=== PATIENT | female | born 1960 | race Caucasian/White ===

== ENCOUNTER 2016-09-15 17:32 | Emergency (ER) | payer OTHER ==
[2016-09-15 18:27] VITALS: BP 172/79; PULSE 80; RESP 16; TEMP 98.9; O2SAT 100
[2016-09-15 21:23] LABS: AUTOMATED NEUTROPHIL # 4.6 TH/MM3 (1.8-7.7); BASOPHIL % 0.4 % (0.0-2.0); EOSINOPHIL # 0.3 TH/MM3 (0-0.4); EOSINOPHIL % 3.9 % (0.0-4.0); HEMATOCRIT 39.3 % (35.0-46.0); HEMO FLAGS DIFF FINAL; LYMPH % 19.8 % (9.0-44.0); LYMPHOCYTE # 1.4 TH/MM3 (1.0-4.8); MEAN CELL VOLUME 91.1 FL (80.0-100.0); MEAN CORPUSCULAR HEMOGLOBIN 30.7 PG (27.0-34.0); MEAN CORPUSCULAR HGB CONC 33.6 % (32.0-36.0); MONO % 10.1 % (0.0-8.0); NEUT % 65.8 % (16.0-70.0); PLATELET COUNT 274 TH/MM3 (150-450); RED BLOOD COUNT 4.32 MIL/MM3 (4.00-5.30); RED CELL DISTRIBUTION WIDTH 14.3 % (11.6-17.2)
[2016-09-15 21:44] LABS: ANION GAP 6 MEQ/L (5-15)
[2016-09-15 21:55] LABS: ALKALINE PHOSPHATASE 90 U/L (45-117); ALT (GPT) 46 U/L (10-53); AST (GOT) 51 U/L (15-37); BICARBONATE 31.1 MEQ/L (21.0-32.0); BLOOD UREA NITROGEN 7 MG/DL (7-18); CHLORIDE 98 MEQ/L (98-107); GLOMERULAR FILTRATION RATE 58 ML/MIN (>89); POTASSIUM 3.4 MEQ/L (3.5-5.1); SODIUM (NA) 135 MEQ/L (136-145); TOTAL BILIRUBIN ADULT 0.7 MG/DL (0.2-1.0)
[2016-09-15] MEDS ORDERED: CYCL1TAB29 PO (22:10)
[2016-09-15] MEDS ORDERED: QUET1TAB10 PO (22:10)
[2016-09-15] MEDS ORDERED: PRAZ1CAP PO (22:10)
[2016-09-15] MEDS ORDERED: REME15TA PO (22:10)
[2016-09-15] MEDS ORDERED: CITA40TA4 PO (22:10)
[2016-09-15 22:12] LABS: ACETAMINOPHEN LESS THAN 2.0 MCG/ML (10.0-30.0)
[2016-09-15] MEDS ORDERED: POTASSIUM CHLORIDE 20 MEQ CONTROLLED RELEASE TAB PO ONE (22:15)
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
[2016-09-15 22:22] VITALS: BP 132/86; PULSE 97; RESP 18; O2SAT 96
[2016-09-15 22:30] LABS: AMPHETAMINE, URINE NEG (NEG); BARBITURATES, URINE NEG (NEG); COCAINE, URINE POS (NEG)
[2016-09-16 03:00] VITALS: BP 128/78; PULSE 77; RESP 18; TEMP 97.5; O2SAT 93
== END 2016-09-16 05:27 ==
LOC: NEPJ 17:32
DX: F32.9 Major depressive disorder, single episode, unspecified (principal); J44.9 Chronic obstructive pulmonary disease, unspecified; F19.10 Other psychoactive substance abuse, uncomplicated; Z72.0 Tobacco use
CPT/HCPCS: 80053; 80307; 80320; 80329; 85025; 99283; G0480

== ENCOUNTER 2016-12-30 09:41 | Emergency (ER) | payer SELFPAY ==
[~2016-12-30] VITALS: Ht 162.6 cm; Wt 48.0 kg
[~2016-12-30 09:41] MED LIST: CITA40TA4 PO; CYCL1TAB29 PO; PRAZ1CAP PO; QUET1TAB10 PO; REME15TA PO
[2016-12-30 09:46] VITALS: BP 152/75; PULSE 69; TEMP 97.8; O2SAT 97
[2016-12-30 10:00] VITALS: O2SAT 98
[2016-12-30] MEDS ORDERED: SODIUM CHLORIDE 0.9% FLUSH 10 ML FLUSH IVF PRN (10:15)
[2016-12-30 10:37] LABS: AUTOMATED NEUTROPHIL # 3.3 TH/MM3 (1.8-7.7); BASOPHIL % 0.5 % (0.0-2.0); EOSINOPHIL # 0.2 TH/MM3 (0-0.4); EOSINOPHIL % 2.3 % (0.0-4.0); HEMATOCRIT 45.1 % (35.0-46.0); HEMO FLAGS DIFF FINAL; LYMPH % 38.3 % (9.0-44.0); LYMPHOCYTE # 2.7 TH/MM3 (1.0-4.8); MEAN CELL VOLUME 87.9 FL (80.0-100.0); MEAN CORPUSCULAR HEMOGLOBIN 29.6 PG (27.0-34.0); MEAN CORPUSCULAR HGB CONC 33.6 % (32.0-36.0); MONO % 11.4 % (0.0-8.0); NEUT % 47.5 % (16.0-70.0); PLATELET COUNT 202 TH/MM3 (150-450); RED BLOOD COUNT 5.13 MIL/MM3 (4.00-5.30); RED CELL DISTRIBUTION WIDTH 15.1 % (11.6-17.2)
[2016-12-30 10:53] LABS: ANION GAP 7 MEQ/L (5-15); AST (GOT) 61 U/L (15-37); BICARBONATE 27.1 MEQ/L (21.0-32.0); BLOOD UREA NITROGEN 16 MG/DL (7-18); CHLORIDE 103 MEQ/L (98-107); GLOMERULAR FILTRATION RATE 49 ML/MIN (>89); MAGNESIUM 1.9 MG/DL (1.5-2.5); POTASSIUM 3.8 MEQ/L (3.5-5.1); SODIUM (NA) 137 MEQ/L (136-145)
[2016-12-30 10:59] LABS: ALKALINE PHOSPHATASE 89 U/L (45-117); ALT (GPT) 69 U/L (10-53); TOTAL BILIRUBIN ADULT 1.2 MG/DL (0.2-1.0)
--- NOTE | 2016-12-30 11:03 | RADRPT ---
EXAM DATE/TIME: 12/30/2016 10:27 [facility] COMPARISON: No previous studies available for comparison. INDICATIONS : Chest pain. MEDICAL HISTORY : Chronic obstructive pulmonary disease. SURGICAL HISTORY : None. ENCOUNTER: Initial ACUITY: 1 day PAIN SCORE: 8/10 LOCATION: Right chest FINDINGS: The lungs are hyperaerated. There is an oblong opacity or mass in the left apex which measures 8 mm in length and 4.2 cm in length. This extends from the suprahilar region to the lateral apical pleura . No focal areas of consolidation. Nodular opacities in the upper lateral lungs bilaterally correla te to the location of the nipples. The heart is normal in size. Both hemidiaphragms well delineated . In clips in right upper quadrant of the abdomen. Osseous structures are grossly intact. CONCLUSION: 1. Hyperaerated lungs. 2. Focal opacity at the left upper lung is indeterminate in appearance. This could represent an exub erant area of scarring. An elongated mass cannot be excluded. If there are no outside chest x-rays to evaluate if this is a new or chronic finding, may consider performing outpatient PET/CT scan for f urther characterization and to make decisions regarding possible biopsy. Campbell Jimenez MD on December 30, 2016 at 10:59 Board Certified Radiologist. This report was verified electronically.
[2016-12-30] MEDS ORDERED: ALBUTEROL SULFATE 90 MCG/ACT HFA 8 GM INHALER INH ONE (11:15)
[2016-12-30] MEDS ORDERED: DEXAMETHASONE SOD PHOS 20 MG/5 ML VIAL IM ONE (11:15)
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
[2016-12-30] MEDS ORDERED: ALBUTEROL SULFATE 90 MCG/ACT HFA 18 GM INHALER INH ONE (11:45)
--- NOTE | 2016-12-30 14:35 | EKG ---
Date Performed: 12/30/2016 Time Performed: 10:00:46 PTAGE: 56 years EKG: Sinus rhythm RIGHT ATRIAL ENLARGEMENT NONSPECIFIC T-WAVE ABNORMALITY ABNORMAL ECG NO PREVIOUS TRACING DOCTOR: Servando Weinstein Interpretating Date/Time 12/30/2016 14:33:50
== END 2016-12-30 12:22 | disposition home or self-care (01) ==
LOC: NEPE 09:41
DX: J44.9 Chronic obstructive pulmonary disease, unspecified (principal); F17.200 Nicotine dependence, unspecified, uncomplicated; R94.31 Abnormal electrocardiogram [ECG] [EKG]
CPT/HCPCS: 71020; 80053; 83735; 84484; 85025; 93005; 96372; 99284; J1100

== ENCOUNTER 2018-03-06 16:04 | Emergency (ER) | payer SELFPAY ==
[~2018-03-06 16:04] MED LIST changes: +CYCL10TA PO; -CYCL1TAB29 PO
[2018-03-06 16:11] VITALS: BP 92/60; PULSE 97; RESP 18; TEMP 99.7; O2SAT 92
[2018-03-06] MEDS ORDERED: VENTAER INH (16:26)
[2018-03-06] MEDS ORDERED: HYDR50TA94 PO (16:26)
[2018-03-06] MEDS ORDERED: ONDANSETRON ODT 4 MG TAB PO ONE (16:30)
[2018-03-06 17:14] LABS: AUTOMATED NEUTROPHIL # 3.1 TH/MM3 (1.8-7.7); BASOPHIL % 0.3 % (0.0-2.0); EOSINOPHIL # 0.2 TH/MM3 (0-0.4); EOSINOPHIL % 3.4 % (0.0-4.0); HEMATOCRIT 39.6 % (35.0-46.0); HEMOGLOBIN 13.5 GM/DL (11.6-15.3); LYMPH % 24.7 % (9.0-44.0); LYMPHOCYTE # 1.2 TH/MM3 (1.0-4.8); MEAN CELL VOLUME 94.8 FL (80.0-100.0); MEAN CORPUSCULAR HEMOGLOBIN 32.4 PG (27.0-34.0); MEAN CORPUSCULAR HGB CONC 34.2 % (32.0-36.0); MEAN PLATELET VOLUME 8.6 FL (7.0-11.0); MONO % 10.4 % (0.0-8.0); MONOCYTE # 0.5 TH/MM3 (0-0.9); NEUT % 61.2 % (16.0-70.0); PLATELET COUNT 139 TH/MM3 (150-450); RED BLOOD COUNT 4.18 MIL/MM3 (4.00-5.30); RED CELL DISTRIBUTION WIDTH 13.8 % (11.6-17.2)
[2018-03-06 17:36] LABS: ALT (GPT) 173 U/L (10-53); AST (GOT) 153 U/L (15-37); BLOOD UREA NITROGEN 14 MG/DL (7-18); CALCIUM 8.6 MG/DL (8.5-10.1); CHLORIDE 105 MEQ/L (98-107); CREATININE 1.04 MG/DL (0.50-1.00); GLOMERULAR FILTRATION RATE 54 ML/MIN (>89); GLUCOSE,RANDOM 149 MG/DL (74-106); SODIUM (NA) 137 MEQ/L (136-145)
[2018-03-06 17:45] LABS: ALKALINE PHOSPHATASE 106 U/L (45-117); TOTAL BILIRUBIN ADULT 0.8 MG/DL (0.2-1.0); TOTAL PROTEIN 7.2 GM/DL (6.4-8.2)
[2018-03-06 18:15] VITALS: BP 127/62; PULSE 74; RESP 18; O2SAT 96
[2018-03-06 22:12] VITALS: BP 100/53; PULSE 71; RESP 17; O2SAT 96
--- NOTE | 2018-03-06 22:48 | PD ---
HPI Chief Complaint: Psychiatric Symptoms Time Seen by Provider: 22:22 Travel History International Travel<30 days: No Contact w/Intl Traveler<30days: No Traveled to known affect area: No History of Present Illness HPI 57-year-old white female presents emergency department by EMS on a voluntary basis for psychological evaluation. Patient had called EMS due to nausea and vomiting. She states that she had vomited approximately 6 times at home. She was feeling confused and disorientated. She states that she had smoked some marijuana or some drug earlier and now has developed nausea vomiting and confusion. The patient also had made statements at the scene that she was feeling sad and depressed and she had contemplated suicide. She had stated that she would walk out to traffic. She has been off her psych medicines for the last several weeks. She had run out and she has not had them refilled again. Patient denies any toxic ingestions. She states that she has had a history of substance abuse in the past and has not smoked crack cocaine in several years. She does not drink alcohol. She denies any fever chills. No chest pain or shortness of breath. No abdominal pain. No dysuria frequency. Symptoms are moderate. Worsened by smoking marijuana or some illegal substances. No alleviating factor. PFSH Past Medical History Narrative Medical Anxiety, depression, DJD, COPD Bipolar Disorder: Yes Anxiety: Yes (PTSD) Depression: Yes COPD: Yes Diminished Hearing: No Musculoskeletal: Yes (DJD) Respiratory: Yes (COPD ) Tetanus Vaccination: < 5 Years Past Surgical History Narrative Surgical Cholecystectomy Cholecystectomy: Yes Eye Surgery: Yes Other Surgery: Yes (carpel tunnel) Social History Alcohol Use: No Tobacco Use: Yes (PACK A DAY ) Substance Use: Yes (marijuana) Allergies-Medications (Allergen,Severity, Reaction): Coded Allergies: No Known Allergies (Unverified Adverse Reaction, Unknown, 03/06/18) Reported Meds & Prescriptions Reported Meds & Active Scripts Active Reported Ventolin Hfa 18 GM Inh (Albuterol Sulfate) 90 Mcg/Act Aer 2 Puff INH Q4-6H PRN Hydroxyzine HCl 50 Mg Tab 50 Mg PO TID Quetiapine (Quetiapine Fumarate) 300 Mg Tab 300 Mg PO HS Prazosin (Prazosin HCl) 1 Mg Cap 1 Mg PO HS Remeron (Mirtazapine) 15 Mg Tab 15 Mg PO HS Flexeril (Cyclobenzaprine HCl) 10 Mg Tab 10 Mg PO TID PRN Citalopram (Citalopram Hydrobromide) 40 Mg Tab 40 Mg PO DAILY Review of Systems General / Constitutional: No: Fever Eyes: No: Visual changes HENT: No: Headaches Cardiovascular: No: Chest Pain or Discomfort Respiratory: No: Shortness of Breath Gastrointestinal: Positive: Nausea, Vomiting, No: Abdominal Pain Genitourinary: No: Dysuria Musculoskeletal: No: Pain Skin: No Rash Neurologic: No: Weakness Psychiatric: Positive: Depression, Suicidal Ideations, Mood Disorder, Substance Abuse, No: Anxiety, Disorder of Thought, Homicidal Ideation Endocrine: No: Polydipsia Hematologic/Lymphatic: No: Easy Bruising Physical Exam Narrative GENERAL: Well-nourished, well-developed patient. SKIN: Warm and dry. HEAD: Normocephalic and atraumatic. EYES: No scleral icterus. No injection or drainage. ENT: No nasal drainage noted. Mucous membranes pink. Airway patent. NECK: Supple, trachea midline. Moves head freely without obvious discomfort. CARDIOVASCULAR: Regular rate and rhythm without murmurs, gallops, or rubs. RESPIRATORY: Breath sounds equal bilaterally. No accessory muscle use. GASTROINTESTINAL: Abdomen soft, non-tender, nondistended. EXTREMITIES: No cyanosis or edema. BACK: Nontender without obvious deformity. No CVA tenderness. NEURO: Patient is alert and oriented. no sensorimotor deficits. Nonfocal. Normal speech. PSYCH: No delusions. No auditory or visual hallucinations. Data Data Last Documented VS Vital Signs Date Time Temp Pulse Resp B/P (MAP) Pulse Ox O2 Delivery O2 Flow Rate FiO2 03/06/18 22:12 71 17 100/53 (69) 96 Room Air 03/06/18 16:11 99.7 Orders Orders Complete Blood Count With Diff (03/06/18 16:24) Comprehensive Metabolic Panel (03/06/18 16:24) Thyroid Stimulating Hormone (03/06/18 16:24) Ed Urine Pregnancytest Poc (03/06/18 16:24) Psych Screen (03/06/18 16:24) Drug Screen, Random Urine (03/06/18 16:24) Alcohol (Ethanol) (03/06/18 16:24) Ondansetron Odt (Zofran Odt) (03/06/18 16:30) Labs Laboratory Tests Test 03/06/18 16:42 03/06/18 17:45 White Blood Count 5.0 TH/MM3 Red Blood Count 4.18 MIL/MM3 Hemoglobin 13.5 GM/DL Hematocrit 39.6 % Mean Corpuscular Volume 94.8 FL Mean Corpuscular Hemoglobin 32.4 PG Mean Corpuscular Hemoglobin Concent 34.2 % Red Cell Distribution Width 13.8 % Platelet Count 139 TH/MM3 Mean Platelet Volume 8.6 FL Neutrophils (%) (Auto) 61.2 % Lymphocytes (%) (Auto) 24.7 % Monocytes (%) (Auto) 10.4 % Eosinophils (%) (Auto) 3.4 % Basophils (%) (Auto) 0.3 % Neutrophils # (Auto) 3.1 TH/MM3 Lymphocytes # (Auto) 1.2 TH/MM3 Monocytes # (Auto) 0.5 TH/MM3 Eosinophils # (Auto) 0.2 TH/MM3 Basophils # (Auto) 0.0 TH/MM3 CBC Comment DIFF FINAL Differential Comment Blood Urea Nitrogen 14 MG/DL Creatinine 1.04 MG/DL Random Glucose 149 MG/DL Total Protein 7.2 GM/DL Albumin 3.0 GM/DL Calcium Level 8.6 MG/DL Alkaline Phosphatase 106 U/L Aspartate Amino Transf (AST/SGOT) 153 U/L Alanine Aminotransferase (ALT/SGPT) 173 U/L Total Bilirubin 0.8 MG/DL Sodium Level 137 MEQ/L Potassium Level 3.6 MEQ/L Chloride Level 105 MEQ/L Carbon Dioxide Level 23.0 MEQ/L Anion Gap 9 MEQ/L Estimat Glomerular Filtration Rate 54 ML/MIN Thyroid Stimulating Hormone 3rd Gen 1.470 uIU/ML Ethyl Alcohol Level LESS THAN 3 MG/DL Urine Opiates Screen NEG Urine Barbiturates Screen NEG Urine Amphetamines Screen NEG Urine Benzodiazepines Screen NEG Urine Cocaine Screen NEG Urine Cannabinoids Screen NEG MDM Medical Decision Making Medical Screen Exam Complete: Yes Emergency Medical Condition: Yes Medical Record Reviewed: Yes Interpretation(s) Laboratory Tests Test 03/06/18 16:42 03/06/18 17:45 White Blood Count 5.0 TH/MM3 Red Blood Count 4.18 MIL/MM3 Hemoglobin 13.5 GM/DL Hematocrit 39.6 % Mean Corpuscular Volume 94.8 FL Mean Corpuscular Hemoglobin 32.4 PG Mean Corpuscular Hemoglobin Concent 34.2 % Red Cell Distribution Width 13.8 % Platelet Count 139 TH/MM3 Mean Platelet Volume 8.6 FL Neutrophils (%) (Auto) 61.2 % Lymphocytes (%) (Auto) 24.7 % Monocytes (%) (Auto) 10.4 % Eosinophils (%) (Auto) 3.4 % Basophils (%) (Auto) 0.3 % Neutrophils # (Auto) 3.1 TH/MM3 Lymphocytes # (Auto) 1.2 TH/MM3 Monocytes # (Auto) 0.5 TH/MM3 Eosinophils # (Auto) 0.2 TH/MM3 Basophils # (Auto) 0.0 TH/MM3 CBC Comment DIFF FINAL Differential Comment Blood Urea Nitrogen 14 MG/DL Creatinine 1.04 MG/DL Random Glucose 149 MG/DL Total Protein 7.2 GM/DL Albumin 3.0 GM/DL Calcium Level 8.6 MG/DL Alkaline Phosphatase 106 U/L Aspartate Amino Transf (AST/SGOT) 153 U/L Alanine Aminotransferase (ALT/SGPT) 173 U/L Total Bilirubin 0.8 MG/DL Sodium Level 137 MEQ/L Potassium Level 3.6 MEQ/L Chloride Level 105 MEQ/L Carbon Dioxide Level 23.0 MEQ/L Anion Gap 9 MEQ/L Estimat Glomerular Filtration Rate 54 ML/MIN Thyroid Stimulating Hormone 3rd Gen 1.470 uIU/ML Ethyl Alcohol Level LESS THAN 3 MG/DL Urine Opiates Screen NEG Urine Barbiturates Screen NEG Urine Amphetamines Screen NEG Urine Benzodiazepines Screen NEG Urine Cocaine Screen NEG Urine Cannabinoids Screen NEG Differential Diagnosis MDM: High Differential diagnoses: Schizophrenia, schizoaffective disorder, bipolar, anxiety, depression, adjustment reaction, mood disorder NOS, ODD, depressive disorder NOS, dementia, dementia with agitation, psychosis NOS, substance induced mood disorder, infection,electrolyte abnormality, malingering. Narrative Course Mental health screening discussed with the patient. Psychiatric screen ordered. The patient been medicated with Zofran by the daytime provider. The patient states that her nausea has resolved. She is feeling back to normal. She states that the initial confusional state has improved. The patient has been medically cleared. This is medical clearance for psychiatric admission Diagnosis Primary Impression: Medical clearance for psychiatric admission Condition: Stable Piyush Villa Mar 06, 2018 22:48
[2018-03-07] VITALS (8 sets, daily range): BP systolic 94–127; BP diastolic 54–71; PULSE 60–76; RESP 18–20; TEMP 98.1–98.7; O2SAT 87–99
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
[2018-03-07] MEDS: RESP: ALBUTEROL 2.5 MG/IPRATROPIUM 0.5 MG NEB (SCH) INH ×2 (08:24→08:25)
[2018-03-07] MEDS ORDERED: TIOTROPIUM BROMIDE 18 MCG INH INH SCH (09:00)
[2018-03-07] MEDS ORDERED: predniSONE 20 MG TAB PO SCH (09:00)
--- NOTE | 2018-03-07 13:00 | PD ---
History of Present Illness Chief Complaint: Psychiatric Symptoms Time Seen by Provider: 12:40 Travel History International Travel<30 Days: No Contact w/Intl Traveler<30days: No Known affected area: No Legal Status Legal Status: Voluntary History of Present Illness: History of Present Illness HPI 57-year-old white, single, homeless, on SSI female with history of substance use , reported history of bipolar disorder, PTSD, MDD who presents emergency department by EMS on a voluntary basis for psychological evaluation.ED documentation is reviewed. " Patient had called EMS due to nausea and vomiting. She was feeling confused and disorientated. She states that she had smoked some marijuana or some drug earlier and now has developed nausea vomiting and confusion. The patient also had made statements at the scene that she was feeling sad and depressed and she had contemplated suicide. She had stated that she would walk out to traffic. She has been off her psych medicines for the last several weeks. She had run out and she has not had them refilled again. Patient denies any toxic ingestions. She states that she has had a history of substance abuse in the past and has not smoked crack cocaine in several years." She does not drink alcohol. She denies any fever chills. No chest pain or shortness of breath. No abdominal pain. No dysuria frequency. Symptoms are moderate. Worsened by smoking marijuana or some illegal substances. Electronic medical record is reviewed. One previous contact in September 2016. She was placed under Davis act for threatening suicide after she found herself stranded here in [place] from [place]. Current toxicology is negative Patient was monitored for extended period of time and presented no behavioral concerns and no suicidality. She is asleep but awakens easily. Speech is clear, logical goal directed, of normal rate and tone. The patient does not present any symptom indicative of her reported psychiatric diagnoses. She states that she has little recollection of what happened prior to her coming to the hospital. Upon some gentle pressure she states that she was in [place] and got released from senior living on February 25 for charges related to drug possession. She then stayed at a admission in [place] for a few days until she got some money that was owed her from Social Security. She rented a room for a few days and then bought her take it to return to [place]. The patient now is worried because she has no place to stay until next Thursday when she receives her social security disability check. She has contacted her landlord in [place] and he will be giving her her apartment back and she will be traveling back to [place]. The patient does not present any evidence of unstable mental illness. There is no suicidal or homicidal ideation, intent or plan. She clearly is homeless and would like to be admitted here or to be taken to [facility]. When she is informed that she does not meet at admission for criteria and that we will gladly give her some bus passes if she chooses to go to [facility] she gets very angry and tells me just get the FK". out of here PFSH Past Medical History Bipolar Disorder: Yes Anxiety: Yes (PTSD) Depression: Yes COPD: Yes Diminished Hearing: No Musculoskeletal: Yes (DJD) Respiratory: Yes (COPD ) Tetanus Vaccination: < 5 Years Past Surgical History Cholecystectomy: Yes Eye Surgery: Yes Other Surgery: Yes (carpel tunnel) Psychiatric History Psychiatric History Hx Psychiatric Treatment: YES, PTSD IN [place]. He was taken to [facility] 2016 but did not follow-up with treatment. History of Inpatient Treatment: Yes ([facility]) Guns or firearms in home: No Social History Homeless female from [place]. On SSI. Recently released from senior living for charges related to possession of substances. Hx Alcohol Use: No Hx Tobacco Use: Yes (PACK A DAY ) Hx Substance Use: Yes (marijuana) Substance Use Type: Crack, Other Hx of Substance Use Treatment: No Allergies-Medications (Allergen,Severity, Reaction): Coded Allergies: No Known Allergies (Unverified Adverse Reaction, Unknown, 03/06/18) Reported Meds & Prescriptions Reported Meds & Active Scripts Active Reported Ventolin Hfa 18 GM Inh (Albuterol Sulfate) 90 Mcg/Act Aer 2 Puff INH Q4-6H PRN Hydroxyzine HCl 50 Mg Tab 50 Mg PO TID Quetiapine (Quetiapine Fumarate) 300 Mg Tab 300 Mg PO HS Prazosin (Prazosin HCl) 1 Mg Cap 1 Mg PO HS Remeron (Mirtazapine) 15 Mg Tab 15 Mg PO HS Flexeril (Cyclobenzaprine HCl) 10 Mg Tab 10 Mg PO TID PRN Citalopram (Citalopram Hydrobromide) 40 Mg Tab 40 Mg PO DAILY Review of Systems Psychiatric: DENIES: Anxiety, Confusion, Mood changes, Depression, Hallucinations, Agitation, Suicidal Ideation, Homicidal Ideation, Delusions Except as stated in HPI: all other systems reviewed are Neg Mental Status Examination Appearance: Appropriate Consciousness: Alert Orientation: x4 Motor Activity: Normal gait Speech: Unremarkable Language: Adequate Fund of Knowledge: Adequate Attention and Concentration: Adequate Memory: Unremarkable Mood: Appropriate Affect: Appropriate Thought Process & Associations: Intact, Logical, Goal directed Thought Content: Appropriate Delusion Type: None Suicidal Ideation: No Suicidal Plan: No Suicidal Intention: No Homicidal Ideation: No Homicidal Plan: No Homicidal Intention: No Insight: Poor Judgment: Impulsive MDM Medical Decision Making Medical Record Reviewed: Yes Assessment/Plan 57-year-old white, single, homeless, on SSI female with history of substance use , reported history of bipolar disorder, PTSD, MDD who presents emergency department by EMS on a voluntary basis for psychological evaluation. The patient was monitored for extended amount of time and presented no behavioral concerns and no suicidality. Patient's presentation is quite manipulative with goal of obtaining correction, and malingering is suspected to the extent that she has actual psychiatric symptoms, it seems that these are mostly substance related. I cannot detect any evidence of a mental illness as defined under the Davis act in this patient at this time. Therefore she does not meet the Davis act criteria and I have lifted the Davis act. Substance use likely represents the greatest modifiable risk factor for self-harm, and I will instruct the nursing staff to provide her the information for chemical dependency dependency treatment at [facility] Antisocial personality traits represent a chronic , non-modifiable risk factor, and the patient's current malingering behavior also represents a non-modifiable risk factor. The patient will not benefit from general inpatient psychiatric hospitalization presently, and in fact he will be counter therapeutic in the long-term to given to her manipulations. Orders Orders Complete Blood Count With Diff (03/06/18 16:24) Comprehensive Metabolic Panel (03/06/18 16:24) Thyroid Stimulating Hormone (03/06/18 16:24) Ed Urine Pregnancytest Poc (03/06/18 16:24) Psych Screen (03/06/18 16:24) Drug Screen, Random Urine (03/06/18 16:24) Alcohol (Ethanol) (03/06/18 16:24) Ondansetron Odt (Zofran Odt) (03/06/18 16:30) Diet Regular Basic (03/07/18 Breakfast) Tiotropium Inh (Spiriva Inh) (03/07/18 09:00) Albuterol-Ipratropium Neb (Duoneb Neb) (03/07/18 08:15) Prednisone (Deltasone) (03/07/18 09:00) Diet Regular Basic (03/07/18 Lunch) Results Vital Signs Date Time Temp Pulse Resp B/P (MAP) Pulse Ox O2 Delivery O2 Flow Rate FiO2 03/07/18 11:13 69 92 Nasal Cannula 2.00 03/07/18 11:09 72 18 87 Room Air 03/07/18 09:39 76 18 96 Nasal Cannula 2.00 03/07/18 08:44 67 18 119/65 (83) 98 Room Air 03/07/18 08:07 98.1 76 20 119/65 (83) 95 Nasal Cannula 2.00 03/07/18 06:09 98.7 60 18 95/54 (68) 95 Room Air 03/07/18 02:29 98.4 65 18 94/54 (67) 99 Room Air 03/06/18 22:12 71 17 100/53 (69) 96 Room Air 03/06/18 18:15 74 18 127/62 (83) 96 Room Air 03/06/18 16:11 99.7 97 18 92/60 (71) 92 Laboratory Tests Test 03/06/18 16:42 03/06/18 17:45 White Blood Count 5.0 Red Blood Count 4.18 Hemoglobin 13.5 Hematocrit 39.6 Mean Corpuscular Volume 94.8 Mean Corpuscular Hemoglobin 32.4 Mean Corpuscular Hemoglobin Concent 34.2 Red Cell Distribution Width 13.8 Platelet Count 139 Mean Platelet Volume 8.6 Neutrophils (%) (Auto) 61.2 Lymphocytes (%) (Auto) 24.7 Monocytes (%) (Auto) 10.4 Eosinophils (%) (Auto) 3.4 Basophils (%) (Auto) 0.3 Neutrophils # (Auto) 3.1 Lymphocytes # (Auto) 1.2 Monocytes # (Auto) 0.5 Eosinophils # (Auto) 0.2 Basophils # (Auto) 0.0 CBC Comment DIFF FINAL Differential Comment Blood Urea Nitrogen 14 Creatinine 1.04 Random Glucose 149 Total Protein 7.2 Albumin 3.0 Calcium Level 8.6 Alkaline Phosphatase 106 Aspartate Amino Transf (AST/SGOT) 153 Alanine Aminotransferase (ALT/SGPT) 173 Total Bilirubin 0.8 Sodium Level 137 Potassium Level 3.6 Chloride Level 105 Carbon Dioxide Level 23.0 Anion Gap 9 Estimat Glomerular Filtration Rate 54 Thyroid Stimulating Hormone 3rd Gen 1.470 Ethyl Alcohol Level LESS THAN 3 Urine Opiates Screen NEG Urine Barbiturates Screen NEG Urine Amphetamines Screen NEG Urine Benzodiazepines Screen NEG Urine Cocaine Screen NEG Urine Cannabinoids Screen NEG Diagnosis Primary Impression: Substance induced mood disorder Additional Impression: Malingering Psychiatrically Cleared: Yes Prescriptions Tiotropium Inh (Spiriva Respimat Inh) 2.5 Mcg/Act Aero 2 PUFF INH DAILY for COPD, #1 INHALER 0 Refills 2.5 mcg = 1 inhalation Prov: Willard Mina MD 03/07/18 Prednisone (Prednisone) 20 Mg Tab 20 MG PO BID for 7 Days, #14 TAB 0 Refills Prov: Willard Mina MD 03/07/18 Albuterol 18 GM Inh (Ventolin Hfa 18 GM Inh) 90 Mcg/Act Aer 2 PUFF INH Q4-6H Y for SHORTNESS OF BREATH, #1 INHALER 0 Refills Prov: Willard Mina MD 03/07/18 Condition: Stable Problem Qualifiers Dena Finn Mar 07, 2018 13:00
--- NOTE | 2018-03-07 13:18 | PD ---
Physical Exam Date Seen by Provider: Mar 07, 2018 Time Seen by Provider: 13:13 Narrative 57-year-old female with history of COPD, who was Davis acted in medically cleared for psychiatric evaluation, has been seen and evaluated by psychiatric services and felt to be stable for discharge. Patient is going to be treated with prednisone taper, Spiriva, and albuterol for her COPD. Patient is instructed to avoid smoking, and follow-up with a primary care physician locally as soon as possible. Psychiatric follow-up will be based on the psychiatric note. Data Data Last Documented VS Vital Signs Date Time Temp Pulse Resp B/P (MAP) Pulse Ox O2 Delivery O2 Flow Rate FiO2 03/07/18 13:09 76 18 127/71 (89) 92 Room Air 03/07/18 11:13 2.00 03/07/18 08:07 98.1 Orders Orders Complete Blood Count With Diff (03/06/18 16:24) Comprehensive Metabolic Panel (03/06/18 16:24) Thyroid Stimulating Hormone (03/06/18 16:24) Ed Urine Pregnancytest Poc (03/06/18 16:24) Psych Screen (03/06/18 16:24) Drug Screen, Random Urine (03/06/18 16:24) Alcohol (Ethanol) (03/06/18 16:24) Ondansetron Odt (Zofran Odt) (03/06/18 16:30) Diet Regular Basic (03/07/18 Breakfast) Tiotropium Inh (Spiriva Inh) (03/07/18 09:00) Albuterol-Ipratropium Neb (Duoneb Neb) (03/07/18 08:15) Prednisone (Deltasone) (03/07/18 09:00) Diet Regular Basic (03/07/18 Lunch) Labs Laboratory Tests Test 03/06/18 16:42 03/06/18 17:45 White Blood Count 5.0 TH/MM3 Red Blood Count 4.18 MIL/MM3 Hemoglobin 13.5 GM/DL Hematocrit 39.6 % Mean Corpuscular Volume 94.8 FL Mean Corpuscular Hemoglobin 32.4 PG Mean Corpuscular Hemoglobin Concent 34.2 % Red Cell Distribution Width 13.8 % Platelet Count 139 TH/MM3 Mean Platelet Volume 8.6 FL Neutrophils (%) (Auto) 61.2 % Lymphocytes (%) (Auto) 24.7 % Monocytes (%) (Auto) 10.4 % Eosinophils (%) (Auto) 3.4 % Basophils (%) (Auto) 0.3 % Neutrophils # (Auto) 3.1 TH/MM3 Lymphocytes # (Auto) 1.2 TH/MM3 Monocytes # (Auto) 0.5 TH/MM3 Eosinophils # (Auto) 0.2 TH/MM3 Basophils # (Auto) 0.0 TH/MM3 CBC Comment DIFF FINAL Differential Comment Blood Urea Nitrogen 14 MG/DL Creatinine 1.04 MG/DL Random Glucose 149 MG/DL Total Protein 7.2 GM/DL Albumin 3.0 GM/DL Calcium Level 8.6 MG/DL Alkaline Phosphatase 106 U/L Aspartate Amino Transf (AST/SGOT) 153 U/L Alanine Aminotransferase (ALT/SGPT) 173 U/L Total Bilirubin 0.8 MG/DL Sodium Level 137 MEQ/L Potassium Level 3.6 MEQ/L Chloride Level 105 MEQ/L Carbon Dioxide Level 23.0 MEQ/L Anion Gap 9 MEQ/L Estimat Glomerular Filtration Rate 54 ML/MIN Thyroid Stimulating Hormone 3rd Gen 1.470 uIU/ML Ethyl Alcohol Level LESS THAN 3 MG/DL Urine Opiates Screen NEG Urine Barbiturates Screen NEG Urine Amphetamines Screen NEG Urine Benzodiazepines Screen NEG Urine Cocaine Screen NEG Urine Cannabinoids Screen NEG MDM Medical Record Reviewed: Yes Supervised Visit with NGUYEN: Yes Narrative Course 57-year-old female with history of COPD, who was Davis acted in medically cleared for psychiatric evaluation, has been seen and evaluated by psychiatric services and felt to be stable for discharge. Patient is going to be treated with prednisone taper, Spiriva, and albuterol for her COPD. Patient is instructed to avoid smoking, and follow-up with a primary care physician locally as soon as possible. Psychiatric follow-up will be based on the psychiatric note. Diagnosis Primary Impression: Medical clearance for psychiatric admission Additional Impressions: Substance induced mood disorder Malingering COPD (chronic obstructive pulmonary disease) Qualified Codes: J44.1 - Chronic obstructive pulmonary disease with (acute) exacerbation Referrals: [facility] Patient Instructions: General Instructions Med/Other Pt SpecificInfo: Prescription(s) given Disposition: DISCHARGE HOME Condition: Stable Kuldeep Mendez Mar 07, 2018 13:18
[2018-03-07] MEDS ORDERED: PRED20 PO (13:19)
[2018-03-07] MEDS ORDERED: VENTAER INH (13:19)
[2018-03-07] MEDS ORDERED: TIOT12.9 INH (13:19)
== END 2018-03-07 14:06 | disposition home or self-care (01) ==
LOC: NEPD 16:04 → NEPJ 03-07 14:06
DX: F19.94 Other psychoactive substance use, unspecified with psychoactive substance-induced mood disorder (principal); J44.1 Chronic obstructive pulmonary disease with (acute) exacerbation; F31.9 Bipolar disorder, unspecified; F43.10 Post-traumatic stress disorder, unspecified; F17.200 Nicotine dependence, unspecified, uncomplicated; Z76.5 Malingerer [conscious simulation]; Z59.0 Homelessness; Z79.899 Other long term (current) drug therapy
CPT/HCPCS: 80053; 80307; 84443; 84703; 85025; 94640; 94664; 99284; J7512

== ENCOUNTER 2018-03-09 09:33 | Emergency (ER) | payer SELFPAY ==
[~2018-03-09] VITALS: Ht 162.6 cm; Wt 52.0 kg
[~2018-03-09 09:33] MED LIST changes: +HYDR50TA94 PO; +PRED20 PO; +TIOT12.9 INH; +VENTAER INH
[2018-03-09 09:54] VITALS: BP 107/64; PULSE 85; RESP 20; TEMP 98; O2SAT 95
[2018-03-09] MEDS ORDERED: PRED-503 PO (10:09)
[2018-03-09] MEDS ORDERED: SILV1CRE20 TOPICAL (10:09)
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
== END 2018-03-09 10:39 | disposition home or self-care (01) ==
LOC: NEPK 09:33
DX: J44.9 Chronic obstructive pulmonary disease, unspecified (principal); L55.0 Sunburn of first degree; F31.9 Bipolar disorder, unspecified; F41.8 Other specified anxiety disorders; F17.200 Nicotine dependence, unspecified, uncomplicated; Z87.39 Personal history of other diseases of the musculoskeletal system and connective tissue; X32.XXXA Exposure to sunlight, initial encounter
CPT/HCPCS: 99283